=== PATIENT | male | born 1965 | race Caucasian/White ===

== ENCOUNTER 2017-09-10 22:40 | Emergency (ER) | payer MEDICARE ==
[2017-09-10 23:37] LABS: HEMATOCRIT 34.1 % (42.0-54.0); HEMOGLOBIN 11.3 g/dL (13.5-17.5); LYMPHOCYTES 18.4 % (15-50); MCH 28.5 pg (26.0-34.0); MCHC 33.1 g/dL (31.0-37.0); MCV 86.1 fL (80.0-100.0); MEAN PLATELET VOLUME 9.4 fL (7.4-10.4); NEUTROPHILS 75.1 % (40-80); PLATELET COUNT 306 10x3/uL (130-400); RBC 3.96 10x6/uL (4.20-6.10); RDW 14.8 % (11.5-14.5); WBC 9.2 10x3/uL (4.8-10.8)
[2017-09-10 23:51] LABS: ALBUMIN 3.4 g/dL (3.4-5.0); ALKALINE PHOSPHATASE 79 U/L (46-116); ALT (SGPT) 34 U/L (10-68); CALC OSMOLALITY 283 mosm/kg (275-300); CALCIUM 8.8 mg/dL (8.5-10.1); CARBON DIOXIDE 26.5 mmol/L (21.0-32.0); CHLORIDE - SERUM 100 mmol/L (98-107); CREATININE - SERUM 1.1 mg/dL (0.6-1.3); GLUCOSE 259 mg/dL (74-106); POTASSIUM - SERUM 4.6 mmol/L (3.5-5.1); PROTEIN - SERUM 7.2 g/dL (6.4-8.2); SODIUM 137 mmol/L (136-145); UREA NITROGEN 16 mg/dL (7-18); eGFR NON AFRICAN AMERICAN 74 mL/min (90-120)
[2017-09-11 00:03] LABS: CHOL - HDL RATIO 5.3 ratio (2.3-4.9); CHOLESTEROL, TOTAL 184 mg/dL (0-200); CREATINE KINASE 151 UL (21-232); HDL CHOLESTEROL 35 mg/dL (32-96); LDL CHOLESTEROL 102 mg/dL (0-100); LDL-HDL RATIO 2.9 ratio (1.5-3.5); TRIGLYCERIDE 237 mg/dL (30-200); TROPONIN-I < 0.017 ng/mL (0.000-0.060)
[2017-09-27 12:14] VITALS: BMI 27.9
== END 2017-09-11 01:08 | disposition home or self-care (01) ==
LOC: D.ER 22:40
PROVIDERS: Family Medicine
DX: I10 Essential (primary) hypertension (principal); J44.9 Chronic obstructive pulmonary disease, unspecified; F17.200 Nicotine dependence, unspecified, uncomplicated; R00.0 Tachycardia, unspecified

== ENCOUNTER 2017-09-26 21:54 | Inpatient (IN) | payer MEDICARE ==
[~2017-09-26] VITALS: Ht 170.2 cm; Wt 85.0 kg
[2017-09-26 22:23] LABS: BASOPHILS 0.3 % (0-2); EOSINOPHILS 14.5 % (0-7); HEMOGLOBIN 11.5 g/dL (13.5-17.5); IMMATURE GRANULOCYTES 0.5 % (0-5); LYMPHOCYTES 8.9 % (15-50); MCH 28.5 pg (26.0-34.0); MCHC 32.9 g/dL (31.0-37.0); MCV 86.6 fL (80.0-100.0); MEAN PLATELET VOLUME 9.3 fL (7.4-10.4); MONOCYTES 5.9 % (2-11); NEUTROPHILS 69.9 % (40-80); RBC 4.04 10x6/uL (4.20-6.10); RDW 14.2 % (11.5-14.5); WBC 19.7 10x3/uL (4.8-10.8)
[2017-09-26 22:24] LABS: PLATELET COUNT 378 10x3/uL (130-400)
[2017-09-26 22:49] LABS: ALBUMIN 3.1 g/dL (3.4-5.0); ALKALINE PHOSPHATASE 88 U/L (46-116); ALT (SGPT) 23 U/L (10-68); BILIRUBIN - TOTAL 0.22 mg/dL (0.2-1.3); CALC OSMOLALITY 276 mosm/kg (275-300); CALCIUM 9.3 mg/dL (8.5-10.1); CARBON DIOXIDE 26.9 mmol/L (21.0-32.0); CHLORIDE - SERUM 101 mmol/L (98-107); CREATININE - SERUM 0.8 mg/dL (0.6-1.3); POTASSIUM - SERUM 4.2 mmol/L (3.5-5.1); PROTEIN - SERUM 8.4 g/dL (6.4-8.2); SODIUM 137 mmol/L (136-145); UREA NITROGEN 16 mg/dL (7-18); eGFR NON AFRICAN AMERICAN > 90 mL/min (90-120)
[2017-09-26 22:50] LABS: GLUCOSE 143 mg/dL (74-106)
[2017-09-26 23:59] LABS: PRO BNP 548 pg/mL (0-125); TROPONIN-I < 0.017 ng/mL (0.000-0.060)
[2017-09-27] MEDS ORDERED: GLUCOPHAGE1000 MG PO (03:03)
[2017-09-27] MEDS ORDERED: PRAVASTATIN SOD10 MG PO (03:03)
[2017-09-27] MEDS ORDERED: NORVASC2.5 MG PO (03:03)
[2017-09-27] MEDS ORDERED: LYRICA50 MG PO ×2 (03:04→13:00)
[2017-09-27] MEDS ORDERED: THEO-24200 MG PO (03:04)
[2017-09-27] MEDS ORDERED: HYDROCHLOROTH12.5 M1 PO (03:06)
[2017-09-27] MEDS ORDERED: FERROUS SULFAT325 MG PO (03:06)
[2017-09-27] MEDS ORDERED: NOVOLOG100 U/M1 SC ×2 (03:07→13:13)
[2017-09-27] MEDS ORDERED: LEVEMIR100 U/M1 SC (03:07)
[2017-09-27] MEDS ORDERED: NITROQUICK0.4 MG SL (03:07)
[2017-09-27] MEDS ORDERED: PLAVIX75 MG PO (03:08)
[2017-09-27] MEDS ORDERED: PROAIR HFA8.5 GM INH (03:08)
[2017-09-27] MEDS ORDERED: PHENERGAN DM SYR5 ML PO (03:09)
[2017-09-27] MEDS ORDERED: HYDROCODONE-APA1 TAB PO ×2 (03:09→13:01)
[2017-09-27] MEDS ORDERED: ATIVAN0.5 MG PO (03:10)
--- NOTE | 2017-09-27 03:11 | NUR ---
CIVIL CAD TECH AT BEDSIDE TO OBTAIN VITALS, CALL LIGHT IN REACH. WILL CONTINUE WITH PLAN OF CARE. [address] ST ON TELEMETRY
[2017-09-27 04:34] VITALS: BP 159/89; BMI 28.2
[2017-09-27 06:19] VITALS: BP 159/89
--- NOTE | 2017-09-27 07:20 | NUR ---
PT UP TO CHAIR. LT HAND INFUSING NS AT 100CC/HR. RESP EVEN AND UNLABORED, PT ASKING WHEN BREAKFAST IS SERVED, INFORMED PT THAT BREAKFAST USUALLY COMES AROUND 8. PT DENIES ANY OTHER NEEDS, FAMILY AT BEDSIDE, CALL LIGHT IN REACH, NAD NOTED, WILL CONTINUE PLAN OF CARE.
[2017-09-27 07:52] VITALS: BP 149/86
--- NOTE | 2017-09-27 09:24 | NUR ---
PT'S IV GOING OFF. IV SHOWING INFUSION COMPLETE, NO ORDERS TO CONT IV FLUIDS, PT SL AT THIS TIME. PT C/O OF HEADACHE, WILL SEE IF HE HAS SOMETHING I CAN GIVE HIM. PT DENIE ANY OTHER NEEDS AT THIS TIME. CALL LIGHT IN REACH, NAD NOTED, WILL CONTINUE PLAN OF CARE.
[2017-09-27 12:14] VITALS: Ht 170.2 cm; Wt 85.0 kg
--- NOTE | 2017-09-27 12:45 | NUR ---
ADMINISTER 500MG OF TYLENOL FOR PAIN, PT C/O ASKING FOR SOCKS SINCE 2AM AND NO ONE BROUGHT HIM ANY. INFORMED PT THAT I DID NOT KNOW HE NEEDED SOCKS, THAT I WOULD GRADLY PROVIDE HIM WITH SOCKS. ALSO PROVIDED PT WITH SUPPLIES TO TAKE SHOWER. PT DENIES ANY OTHER NEEDS AT THIS TIME. CALL LIGHT IN REACH, NAD NOTED, WILL CONTINUE PLAN OF CARE.
[2017-09-27] MEDS ORDERED: LOPRESSOR25 MG PO (13:06)
[2017-09-27] MEDS ORDERED: VOLTAREN100 GM TOPICAL (13:06)
[2017-09-27] MEDS ORDERED: PEPCID40 MG PO (13:07)
[2017-09-27] MEDS ORDERED: ZESTRIL40 MG PO (13:07)
[2017-09-27] MEDS ORDERED: ADVAIR 250/501 DISK INH (13:08)
[2017-09-27] MEDS ORDERED: ATROVENT 0.02%2.5 ML UPD (13:10)
[2017-09-27] MEDS ORDERED: ALBUTEROL2.5 MG/3 M INH (13:11)
--- NOTE | 2017-09-27 13:18 | NUR ---
C/O THAT NO DOCTOR HAS SEEN PT YET, THAT NOTHING IS BEING DONE FOR HIM. STATED " IS NOTHING BEING DONE THAT I COULDNT DO AT HOME, EXCEPT FOR OXEGEN. HE CAN NOT EVEN TAKE A SHOWER BECAUSE HE IS SO SOB. CAN YOU NOT DO SOMETHING SO THE DOCTOR CAN SPEED UP THE PROCESS." INFORMED PT'S THAT IF HE IS SO SOB THAT HE NEEDS TO FORGET ABOUT TAKING A SHOWER AND GET BACK TO BED. AND THAT THE ESTUARDO EMANUEL THE FINAL TESTER IS ON THE FLOOR BUT HAS MANY PT TO SEE, THAT SHE WILL BE IN TO SEE PT SHORTLY. VERBALIZED UNDERSTANDING. PT STILL WANTS TO SHOWER, A LITTLE SOB, NAD NOTED, WILL CONTINUE PLAN OF CARE.
--- NOTE | 2017-09-27 13:40 | NUR ---
NOTIFIED ESTUARDO STANLEYOANH THAT PT'S IS REQUESTING FOR PT TO HAVE SOMETHING FOR PAIN. ESTUARDO STANLEYOANH STATED THAT SHE WOULD PUT ORDER FOR SOMETHING FOR PAIN.
[2017-09-27 16:01] VITALS: BP 160/92
--- NOTE | 2017-09-27 16:23 | NUR ---
BLOOD SUGAR OF 222, 12UNITS OF HUMULIN R PER S/S. PT DENIES ANY NEEDS AT THIS TIME, CALL LIGHT IN REACH, NAD NOTED.
[2017-09-27 20:27] VITALS: BP 143/69
--- NOTE | 2017-09-28 00:02 | NUR ---
PT IN CHAIR RESTING AT THIS TIME. PT IN BED. WILL CONT TO MONITOR
[2017-09-28 00:33] VITALS: BP 104/71
--- NOTE | 2017-09-28 03:18 | NUR ---
FABRIC LAY OUT WORKER AT BEDSIDE TO OBTAIN VITALS, CALL LIGHT IN REACH. WILL CONTINUE WITH PLAN OF CARE.
--- NOTE | 2017-09-28 03:57 | NUR ---
PT IN CHAIR RESTING. IN BED. WILL CONT TO MONITOR
[2017-09-28 04:33] VITALS: BP 130/71
[2017-09-28 05:24] LABS: ALBUMIN 2.8 g/dL (3.4-5.0); ALKALINE PHOSPHATASE 80 U/L (46-116); ALT (SGPT) 21 U/L (10-68); BILIRUBIN - TOTAL 0.18 mg/dL (0.2-1.3); CALCIUM 9.6 mg/dL (8.5-10.1); CARBON DIOXIDE 25.1 mmol/L (21.0-32.0); CHLORIDE - SERUM 97 mmol/L (98-107); SODIUM 134 mmol/L (136-145); eGFR NON AFRICAN AMERICAN 83 mL/min (90-120)
[2017-09-28 05:28] LABS: CALC OSMOLALITY 280 mosm/kg (275-300); GLUCOSE 214 mg/dL (74-106); POTASSIUM - SERUM 5.2 mmol/L (3.5-5.1); UREA NITROGEN 33 mg/dL (7-18)
[2017-09-28 05:34] LABS: BASOPHILS 0.1 % (0-2); EOSINOPHILS 0.3 % (0-7); HEMATOCRIT 34.3 % (42.0-54.0); HEMOGLOBIN 11.1 g/dL (13.5-17.5); IMMATURE GRANULOCYTES 0.5 % (0-5); MCH 28.1 pg (26.0-34.0); MCHC 32.4 g/dL (31.0-37.0); MCV 86.8 fL (80.0-100.0); MEAN PLATELET VOLUME 10.2 fL (7.4-10.4); MONOCYTES 4.3 % (2-11); NEUTROPHILS 88.8 % (40-80); RBC 3.95 10x6/uL (4.20-6.10); WBC 19.4 10x3/uL (4.8-10.8)
[2017-09-28 05:35] LABS: PLATELET COUNT 461 10x3/uL (130-400)
--- NOTE | 2017-09-28 07:50 | NUR ---
INTRODUCED MYSELF TO PT PRIMARY RN FOR TODAYS SHIFT. PT A&O SITTING UP IN BED RESTING QUIETLY. PT STATES HE HAS HAD A GOOD NIGHT OVERALL AND DENIES ANY CURRENT PAIN OR NEEDS AT THIS TIME. CL IN REACH, WILL CHECK NEW ORDERS AND CPOC.
[2017-09-28 08:33] VITALS: BP 163/87
--- NOTE | 2017-09-28 08:45 | NUR ---
MORNING MEDICATIONS GIVEN. PT REQUESTING MORE PAIN MEDICATIONS ON TOP OF HIS NORCO TID AND STATES HE NORMALLY GETS A PAIN INJECTION OF "MORPHINE OR DEMEROL" WHEN IN HOSPITAL. PT C/O HIS SHOULDER BEING SOURCE OF PAIN AND CONSTANTLY. NO ORDERS FOR THAT WILL DISCUSS WITH PRIMARY. PT HAS A R.FOOT HEALING AMPUTEE SITES AND REFUSED TO LET ME ASSESS AT THIS TIME, HE STATES HIS DOES THE DRSG CHANGE AND I CANT WATCH AT THAT TIME. PT SITTING UP IN BEDSIDE CHAIR RESTING WATCHING TV. PT DENIES ANY FURTHER NEEDS AT THIS TIME. WILL CPOC.
--- NOTE | 2017-09-28 11:30 | NUR ---
FSBS 380 SS CALLS FOR 24 UNITS AND PT REFUSED AND STATES HE WILL ONLY TAKE 20. PROVIDED PT WITH THE 20 UNITS. PT SITTING UP IN BEDSIDE CHAIR DENIES ANY FURTHER NEEDS AT THIS TIME. CL IN REACH. WILL CPOC.
[2017-09-28 12:50] VITALS: BP 132/69
--- NOTE | 2017-09-28 14:29 | NUR ---
PT SITTING UP IN BEDSIDE CHAIR RESTING QUIETLY WITH FAMILY IN ROOM. PROVIDED PT WITH SCHEDULED MEDICATIONS AND HE VOICED THANKS AND DENIES ANY FURTHER NEEDS AT THIS TIME. CL IN REACH. WILL CPOC.
[2017-09-28 16:22] VITALS: BP 156/82
--- NOTE | 2017-09-28 17:00 | NUR ---
PT SITTING UP IN BEDSIDE CHAIR RESTING QUIETLY WATCHING TV. PT DENIES ANY FURTHER NEEDS AT THIS TIME. CL IN REACH. WILL CPOC.
--- NOTE | 2017-09-28 19:40 | NUR ---
ACCURATE I&O NOT AVAILABLE R/T PT REFUSING TO USE URINAL. GIRLFRIEND AT BEDSIDE AND STATES "HES OKAY HES GOING ENOUGH NASEEM BEEN WATCHING IT"
[2017-09-28 20:59] VITALS: BP 140/73
[2017-09-29 01:13] VITALS: BP 145/92
--- NOTE | 2017-09-29 03:30 | NUR ---
PT RESTING QUIETLY, EYES CLOSED. RESP EVEN, UNLABORED. NO DISTRESS NOTED. CONTINUE TOLL BRIDGE ATTENDANT'S PLAN OF CARE.
[2017-09-29 04:51] VITALS: BP 155/82
[2017-09-29 05:59] LABS: BASOPHILS 0 % (0-2); EOSINOPHILS 0 % (0-7); HEMATOCRIT 32.6 % (42.0-54.0); HEMOGLOBIN 10.6 g/dL (13.5-17.5); IMMATURE GRANULOCYTES 0.3 % (0-5); LYMPHOCYTES 3.8 % (15-50); MCH 28.5 pg (26.0-34.0); MCHC 32.5 g/dL (31.0-37.0); MCV 87.6 fL (80.0-100.0); MEAN PLATELET VOLUME 10.4 fL (7.4-10.4); NEUTROPHILS 92.9 % (40-80); PLATELET COUNT 459 10x3/uL (130-400); RBC 3.72 10x6/uL (4.20-6.10); RDW 14.2 % (11.5-14.5); WBC 21.6 10x3/uL (4.8-10.8)
[2017-09-29 06:19] LABS: ALBUMIN 2.8 g/dL (3.4-5.0); ANION GAP 15.2 mmol/L (8-16); BILIRUBIN - TOTAL 0.1 mg/dL (0.2-1.3); CALCIUM 9.9 mg/dL (8.5-10.1); CARBON DIOXIDE 27.5 mmol/L (21.0-32.0); POTASSIUM - SERUM 5.7 mmol/L (3.5-5.1); PROTEIN - SERUM 7.7 g/dL (6.4-8.2)
[2017-09-29 06:28] LABS: CREATININE - SERUM 1.3 mg/dL (0.6-1.3)
--- NOTE | 2017-09-29 07:30 | NUR ---
ASSESSMENT COMPLETED. TELEMERTY SHOWS SR. O2 AT 4 L/M PER NC. LEFT HAND SL. RIGHT FOOT WITH DRSG TO TOES. PT IS UP AB JOSEPH. DENIES ANY NEEDS. CALL LIGHT IN REACH
[2017-09-29 07:54] VITALS: BP 169/94
[2017-09-29 12:30] VITALS: BP 150/78
--- NOTE | 2017-09-29 12:42 | NUR ---
UP IN HALLWAY WALKING. GAIT STEADY. DENIES ANY NEEDS. WANTING TO GO HOME
--- NOTE | 2017-09-29 13:30 | NUR ---
WALKING IN HALLWAY RESP UNLABORED NAD NOTED
[2017-09-29] MEDS ORDERED: NORVASC2.5 MG PO (13:49)
[2017-09-29] MEDS ORDERED: MUCINEX600 MG PO (13:50)
[2017-09-29] MEDS ORDERED: SINGULAIR10 MG PO (13:50)
[2017-09-29] MEDS ORDERED: PREDNISONE10 MG PO (13:51)
--- NOTE | 2017-09-29 15:31 | NUR ---
PT DISCHARGED. INSTRUCTIONS GIVEN TO PT. TO PRIVATE CAR PER WHEELCHAIR
--- NOTE | 2017-10-25 14:06 | CN ---
PATIENT NAME:MARY FORD MEDICAL RECORD: [id number] : 61 LOCATION:D. D.2129 ADMIT DATE: 09/27/17 ACCOUNT: [id number] CONSULTING PHYSICIAN: BENNIE DONIS MD REFERRING PHYSICIAN: ANAYA WARD MD DATE OF CONSULTATION: 09/27/2017 CONSULT REQUESTING PHYSICIAN: Anaya Ward MD REASON FOR CONSULTATION: Acute exacerbation of chronic obstructive pulmonary disease and shortness of breath. HISTORY OF PRESENT ILLNESS: Mr. Ford is a 52-year-old gentleman who has a history of asthma and COPD, still everyday smoker. According to the patient, 11 to 12 days ago, he has flu and he was treated with Tamiflu. Then he was seen in Dr. Tiwari office and he was wheezing, coughing. He was given some Zithromax, but the patient was not getting any better. He came into the ER yesterday with worsening shortness of breath, wheezing and coughing. He also was having fever. REVIEW OF SYSTEMS: Mainly in the history of present illness. PAST MEDICAL HISTORY: 1. COPD. 2. Asthma COPD overlap syndrome. 3. Chronic cough. 4. Gastroesophageal reflux disease. 5. Anxiety. PAST SURGICAL HISTORY: He has knee, foot, arm and extremity surgery. ALLERGIES: ALLERGIC TO SULFA. MEDICATION: On Starline was reviewed. PERSONAL AND SOCIAL HISTORY: The patient is still smoking almost a pack a day. He is , lives with his . FAMILY HISTORY: Noncontributory. His parents have cardiovascular diseases and cancer. PHYSICAL EXAMINATION: GENERAL: Now, the patient is sitting in chair. He has audible wheeze. VITAL SIGNS: The blood pressure is 149/86, pulse is 108, respiration is 20, temperature is 98.1, and SPO2 is 95% on 2 liters nasal cannula. HEENT: Conjunctivae pink, sclerae nonicteric. NECK: Supple, no JVD. CHEST: The chest excursion is minimal on both prolonged expiration with wheezing. HEART: Rhythm regular, normal sound, no murmur. ABDOMEN: Soft. Bowel sounds present. No hepatosplenomegaly. RECTAL: Deferred. EXTREMITIES: No cyanosis, no clubbing, no pedal edema. SKIN: Warm, normal turgor. CENTRAL NERVOUS SYSTEM: The patient is awake and alert. There are no obvious cranial nerve abnormality. The gait was not tested. CONSULT REPORT [id number] MARY FORD CHEST RADIOGRAPH: There is hyperinflation, no acute infiltrate. OTHER LABORATORY DATA: CBC; the WBC is 19.7, hemoglobin 11.5, hematocrit 35, the platelet count is 378. CHEMISTRY: ABG; the pH is 7.41, pCO2 is 43.8, pO2 is 79, and bicarbonate is 28.1. This was done on 3 liters of oxygen. The D-dimer was negative. IMPRESSION: 1. Acute exacerbation of chronic obstructive pulmonary disease. 2. Acute hypoxic respiratory failure. 3. Asthma and chronic obstructive pulmonary disease overlap syndrome. 4. Tobacco dependence syndrome. 5. Acute cough. 6. Leukocytosis. 7. Gastroesophageal reflux disease. RECOMMENDATION: 1. Albuterol/ipratropium nebulizer q. 4 hourly; Brovana/budesonide nebulizer b.i.d. 2. Continue theophylline. Check the level. 3. Aggressive sliding scale. 4. Methylprednisolone IV. 5. Montelukast and antitussive. 6. Follow up labs and chest radiograph. Thank you for involving me in the care of Mr. Ford. TRANSINT:[id number] Voice Confirmation ID: [id number] DOCUMENT ID: [id number] BENNIE DONIS MD at 1406 CC: ANAYA WARD MD [id number] DICTATION DATE: 09/27/17 1510 SLD EDUCATIONAL AIDE: 09/27/172201 DIS IN 09/29/17 [place] [id number] [place] [address]
== END 2017-09-29 15:33 | disposition home or self-care (01) | DRG 190 ==
LOC: D.ER 21:54 → D.M2 09-27 00:36 → OBSVTIME 09-27 00:36 → D.M2 09-27 14:54
PROVIDERS: Family Medicine; ADMIT Family Medicine
DX: J44.1 Chronic obstructive pulmonary disease with (acute) exacerbation (principal); J96.01 Acute respiratory failure with hypoxia; F17.203 Nicotine dependence unspecified, with withdrawal; M35.1 Other overlap syndromes; K21.9 Gastro-esophageal reflux disease without esophagitis; F41.9 Anxiety disorder, unspecified; I10 Essential (primary) hypertension; E11.65 Type 2 diabetes mellitus with hyperglycemia; E78.5 Hyperlipidemia, unspecified; M25.512 Pain in left shoulder; S90.935A Unspecified superficial injury of left lesser toe(s), initial encounter; X58.XXXA Exposure to other specified factors, initial encounter

== ENCOUNTER → 2017-10-01 07:53 | Outpatient (CLI) | payer MEDICARE ==
[2017-09-27 12:14] VITALS: BMI 27.9
[~2017-10-01 07:53] MED LIST: ADVAIR 250/501 DISK INH; ALBUTEROL2.5 MG/3 M INH; ATIVAN0.5 MG PO; ATROVENT 0.02%2.5 ML UPD; FERROUS SULFAT325 MG PO; GLUCOPHAGE1000 MG PO; HYDROCHLOROTH12.5 M1 PO; HYDROCODONE-APA1 TAB PO; LEVEMIR100 U/M1 SC; LOPRESSOR25 MG PO; LYRICA50 MG PO; MUCINEX600 MG PO; NITROQUICK0.4 MG SL; NORVASC2.5 MG PO; NOVOLOG100 U/M1 SC; PEPCID40 MG PO; PHENERGAN DM SYR5 ML PO; PLAVIX75 MG PO; PRAVASTATIN SOD10 MG PO; PREDNISONE10 MG PO; PROAIR HFA8.5 GM INH; SINGULAIR10 MG PO; THEO-24200 MG PO; VOLTAREN100 GM TOPICAL; ZESTRIL40 MG PO
--- NOTE | 2017-10-09 12:15 | EC ---
PATIENT:MARY BERUMEN DATE OF SERVICE: 10/01/17 SEX: M MEDICAL RECORD: [id number] DATE OF : 61 [facility] AGE OF PATIENT: 52 ADMISSION DATE: 10/01/17 REFERRING PHYSICIAN: INTERPRETING PHYSICIAN: CARLOS CASTELLANO MD ECHOCARDIOGRAM REPORT ECHO CHARGES 4 ECHO COMPLETE CLINICAL DIAGNOSIS: PVD/HALL ECHOCARDIOGRAPHIC MEASUREMENTS (adult normal given) AC root (d.<3.7cm) 3.6 cm LV Septum d (<1.2 cm> 1.9 cm Valve Excursion 2.3 cm LV Septum (systole) 2.3 cm Left Atria (s.<4.0cm> 4.4 cm LVPW d(<1.2cm) 1.6 cm RV (d.<2.3cm) 2.9 cm LVPW (sytole) 2.3 cm LV diastole(<5.6CM) 2.9 cm MV E-F(>70mm/sec) cm LV systole 4.3 cm LVOT Diameter 2.5 cm MV exc.(>10mm) cm Est.ejection fraction (50-75%) % Pericardial Effusion N DOPPLER: LVIT cm/sec A 87.0 cm/sec E 67.0 cm/sec LA cm/sec RVSP 18.1 mmHg LVOT 111 cm/sec AOP1/2T m/s Asc. Ao 130 cm/sec RVOT 79.0 cm/sec RA cm/sec PA 91.0 cm/sec AV Gradient Peak 6.8 mmHg AV Mean 3.0 mmHg AV Area 3.0 cm MV Gradient Peak 5.0 mmHg MV Mean 1.9 mmHg MV Area cm COMMENTS: Ballistician: Harjeet MICHELOE Audio Recording Engineer: Rene Tiwari TAPE# PACS DATE OF SERVICE: 10/01/2017 Echocardiogram FINDINGS: 1. Left ventricular chamber size is within normal limits. Left ventricular systolic function is normal. Overall ejection fraction estimated at 55%. 2. Left atrium is enlarged at 4.4 cm. Right atrium and right ventricular chamber sizes are within normal limits. 3. Valvular structures have normal structure and motion. ECHOCARDIOGRAM REPORT [id number] MARY BERUMEN 4. Doppler interrogation only reveals trace mitral regurgitation, trace tricuspid regurgitation. No other valvular insufficiency or stenosis and pulmonary systolic pressure is normal estimated at 18 mmHg. 5. No evidence of pericardial effusion or left ventricular thrombus. TRANSINT:[id number] Voice Confirmation ID: [id number] DOCUMENT ID: [id number] CARLOS CASTELLANO MD at 1215 CC: [id number] DICTATION DATE: 10/04/17 1256 DIRECTOR OF CONVENTION SERVICES: 10/04/17 1304 DEP CLI 10/01/17 [place] [id number]
== END | disposition home or self-care (01) ==
LOC: D.US 07:53 → D.ECHO 09:00
DX: R06.00 Dyspnea, unspecified (principal); I73.9 Peripheral vascular disease, unspecified

== ENCOUNTER 2018-05-29 18:12 | Emergency (ER) | payer MEDICARE ==
[~2018-05-29] VITALS: Ht 170.2 cm; Wt 72.7 kg
[2018-05-29 18:28] VITALS: Ht 170.2 cm; Wt 72.7 kg
[2018-05-29 21:02] VITALS: BP 140/82
== END 2018-05-29 19:30 | disposition left against medical advice (07) ==
LOC: D.ER 18:12
DX: E11.621 Type 2 diabetes mellitus with foot ulcer (principal); L97.529 Non-pressure chronic ulcer of other part of left foot with unspecified severity; E11.65 Type 2 diabetes mellitus with hyperglycemia; L97.519 Non-pressure chronic ulcer of other part of right foot with unspecified severity; I10 Essential (primary) hypertension; J44.9 Chronic obstructive pulmonary disease, unspecified; K21.9 Gastro-esophageal reflux disease without esophagitis; F17.200 Nicotine dependence, unspecified, uncomplicated